=== PATIENT | female | born 1960 | race Caucasian/White ===

== ENCOUNTER 2020-12-02 19:11 | Observation (INO) ==
[2020-12-02] MEDS ORDERED: SODIUM CHLORIDE 0.9% 1000ML 1,000 ML IV STA (19:31)
[2020-12-02] MEDS ORDERED: ONDANSETRON INJ 2 MG/ML 2 ML VIAL IV STA (19:31)
--- NOTE | 2020-12-02 19:40 | Emergency Department Note ---
Impression & Plan Lower abdominal pain, Acute perforated appendicitis, Tachycardia ED Provider Note NAME: MARCELA SKY AGE: 60 SEX: F : 1960 ARRIVES VIA: Walk-In INFORMANT: [Patient] ED PROVIDER(S): [Ulices Palma MD] CHIEF COMPLAINT: Abdominal pain HISTORY OF PRESENT ILLNESS: The patient is a 60-year-old female presents to the ER with about 1 day of abdominal pain. The pain started last evening and was mainly epigastric. The pain now seems to be along the lower abdomen, more so to the right with some radiation to the right upper quadrant. Movement, walking, taking a deep breath makes the pain worse. The pain is a 10/10. There has been no cough or nasal congestion. She is not short of breath. There is no chest pain. She has not had any urinary or bowel complaints. The patient did have a gastric bypass, she is really worried about her appendix, that is why she is here. REVIEW OF SYSTEMS: See HPI for pertinent positives and negatives. A total of ten systems were reviewed and were otherwise negative. PMHx/PSHx: See Below SOCIAL HISTORY: See Below. PHYSICAL EXAM: GENERAL: Patient is in no acute distress. HEENT: No acute trauma, normocephalic atraumatic, mucous membranes moist, no nasal congestion, no scleral icterus. NECK: No stridor, no adenopathy, no meningismus, trachea is midline. LUNGS: Clear to auscultation bilaterally, no wheeze, no rhonchi, breath sounds equal. HEART: Tachycardic with a regular rhythm, no murmurs. ABDOMEN: Soft, moderately tender to the lower abdomen bilaterally especially on the right, bowel sounds positive, no peritonitis. EXTREMITIES: No cyanosis or edema, full range of motion of all the joints witho ut pain or difficulty, no signs for acute trauma. NEUROLOGIC: Oriented x 3, no acute motor or sensory deficits, no focal weakness. SKIN: No rash, no jaundice, no diaphoresis. DIFFERENTIAL DIAGNOSIS: Appendicitis, ovarian cyst, infections, diverticulitis, UTI, obstruction, mes enteric ischemia, aortic pathology, inflammatory bowel disease, renal colic, PUD, pancreatitis, biliary pathology, hernia, volvulus, constipation, as well as other pathologies. EMERGENCY DEPARTMENT COURSE/PROCEDURES: ECG: Indication was tachycardia. The ECG shows a sinus tachycardia with a rate of 142. There is LVH present. There is no ST elevation, no PVCs. The QTc is 458. No old ECGs available for comparison. Continuous Cardiac Monitoring: An order was placed for continuous cardiac monitoring. The monitor shows a rate of 147 with sinus tachycardia. MEDICAL DECISION MAKING: There is no leukocytosis or concerning anemia. There is a normal platelet count. No significant electrolyte abnormality or kidney failure. No liver enzyme elevation. No pancreatitis. ECG shows a sinus tachycardia, no acute isc hemia. Cardiac enzyme testing x1 is not consistent with acute cardiac injury. Urinalysis does not show infection, some contamination was seen. Covid testing is pending. Chest film does not show free air or pneumonia. Abdominal and pelvis CT shows a perforated appendicitis with loculated gas. There was no abscess. The patient was given IV saline, 2 L. She was given IV Zosyn as empiric antib iotic coverage. Patient was given IV morphine for pain, IV Zofran for nausea. I talked the patient about her findings. I spoke with case repairer. I did speak with the on-call surgeon. Certainly, the appendicitis findings explain her presentation. Past Med/Surg History Surgical History History of gastric bypass Social History Smoking Status: Former smoker Feels Safe at Home: Yes Allergies Allergies Allergy/AdvReac Type Severity Reaction Status Date / Time No Known Allergies Allergy Unverified 12/02/20 20:15 Home Meds Home Medications Medication Instructions Recorded Confirmed jlsokrb-njzrhirxr-bdnk 1 tab PO QAM 12/02/20 12/02/20 ibuprofen 400 mg PO Q6H PRN 12/02/20 12/02/20 potassium 99 mg PO QAM 12/02/20 12/02/20 vitamin B complex 1 tab PO QAM 12/02/20 12/02/20 Results & Data (ED) Vital Signs Vital Signs - 24 hr 12/02/20 19:22 12/02/20 19:38 12/02/20 20:04 Temperature 36.3 C L Temperature Source Skin Pulse Rate 147 H 147 H 154 H Pulse Rate from SpO2 Sensor 153 H Pulse Rhythm Regular Respiratory Rate 18 18 17 Respiratory Effort / Characteristics Non-Labored Spontaneous Respiratory Depth Normal Respiratory Pattern Regular Blood Pressure 148/77 H 123/75 Blood Pressure Mean 100 91 Blood Pressure Position Sitting Pulse Oximetry 97 97 96 Oxygen Delivery Method Room Air Room Air Sepsis Recent Fever Within 48 Hours No Sepsis New/Unexplained Change in Mental Status N/A Sepsis Action Taken by Nursing No Action Required 12/02/20 20:30 12/02/20 21:00 12/02/20 21:30 Temperature Temperature Source Pulse Rate 130 H 129 H 130 H Pulse Rate from SpO2 Sensor 130 H 129 H 130 H Pulse Rhythm Respiratory Rate 19 19 14 Respiratory Effort / Characteristics Respiratory Depth Respiratory Pattern Blood Pressure 149/85 H 155/85 H 161/88 H Blood Pressure Mean 106 108 112 Blood Pressure Position Pulse Oximetry 96 97 97 Oxygen Delivery Method Sepsis Recent Fever Within 48 Hours Sepsis New/Unexplained Change in Mental Status Sepsis Action Taken by Nursing 12/02/20 22:00 Temperature Temperature Source Pulse Rate 130 H Pulse Rate from SpO2 Sensor 131 H Pulse Rhythm Respiratory Rate 18 Respiratory Effort / Characteristics Respiratory Depth Respiratory Pattern Blood Pressure 132/99 Blood Pressure Mean 110 Blood Pressure Position Pulse Oximetry 96 Oxygen Delivery Method Sepsis Recent Fever Within 48 Hours Sepsis New/Unexplained Change in Mental Status Sepsis Action Taken by Detention Medications Current Medication List: was personally reviewed by me Laboratory Data Attestation: I reviewed the patient's lab results. Result diagrams: 12/02/20 19:50 12/02/20 19:50 Lab Results 12/02/20 12/02/20 12/02/20 Range/Units 19:50 19:50 19:51 WBC 7.22 (4.8-10.8) K/uL RBC 4.82 (4.2-5.4) M/uL Hgb 14.8 (12.0-16.0) g/dL Hct 42.7 (37-47) % MCV 88.6 (80-100) fL MCH 30.7 (25-34) pg MCHC 34.7 (32-36) g/dL RDW Std Deviation 41.3 (36.4-46.3) fL RDW Coeff of Diana 12.7 (11.5-14.5) % Plt Count 207 (130-400) K/uL MPV 10.1 (7.4-10.4) fL Immature Gran % (Auto) 0.1 % Neut % (Auto) 90.5 % Lymph % (Auto) 6.2 % [place] % (Auto) 3.0 % Eos % (Auto) 0.1 % Baso % (Auto) 0.1 % Neut # (Auto) 6.52 H (1.4-6.5) K/uL Lymph # (Auto) 0.45 L (1.2-3.4) K/uL [place] # (Auto) 0.22 (0.11-0.59) K/uL Eos # (Auto) 0.01 (0-0.5) K/uL Baso # (Auto) 0.01 (0-0.2) K/uL Immature Gran # (Auto) 0.01 (0.00-0.02) K/uL Sodium 135 L (136-145) mmol/L Potassium 3.7 (3.5-5.1) mmol/L Chloride 102 (98-107) mmol/L Carbon Dioxide 22 (21-32) mmol/L Anion Gap 10.0 (3-11) BUN 12 (7-18) mg/dl Creatinine 1.04 (0.6-1.2) mg/dl Est Cr Clr Drug Dosing 66.1 ml/min Est GFR ( Amer) 67.6 Est GFR (Non-Af Amer) 58.4 BUN/Creatinine Ratio 11.7 (10-20) Glucose 149 H (70-99) mg/dl Calcium 9.8 (8.5-10.1) mg/dl Total Bilirubin 0.7 (0.2-1) mg/dl AST 16 (15-37) U/L ALT 34 (12-78) U/L Alkaline Phosphatase 91 (45-117) U/L Troponin I < 0.015 (0-0.045) ng/ml Total Protein 7.6 (6.4-8.2) gm/dl Albumin 4.0 (3.4-5.0) gm/dl Globulin 3.6 (2.5-4.0) gm/dl Albumin/Globulin Ratio 1.1 (0.9-2) Lipase 97 (73-393) U/L Urine Color Dark Yellow Urine Appearance Clear (Clear) Urine pH 5.5 (4.5-7.5) Ur Specific [place] 1.028 (1.000-1.030) Urine Protein Trace H (Negative) Urine Glucose (UA) Negative (Negative) Urine Ketones Trace H (Negative) Urine Blood Negative (Negative) Urine Nitrite Negative (Negative) Urine Bilirubin 1+ H (Negative) Urine Urobilinogen Negative (Negative) Ur Leukocyte Esterase Trace H (Negative) Urine WBC (Auto) 5-10 H (0-5) /hpf Urine RBC (Auto) 5-10 H (0-4) /hpf U Hyaline Cast (Auto) 5-10 H (0-5) /lpf U Epithel Cells (Auto) >30 H (0-5) /lpf Urine Bacteria (Auto) Negative (Negative) COVID-19 Eval Order 12/02/20 Range/Units 22:15 WBC (4.8-10.8) K/uL RBC (4.2-5.4) M/uL Hgb (12.0-16.0) g/dL Hct (37-47) % MCV (80-100) fL MCH (25-34) pg MCHC (32-36) g/dL RDW Std Deviation (36.4-46.3) fL RDW Coeff of Diana (11.5-14.5) % Plt Count (130-400) K/uL MPV (7.4-10.4) fL Immature Gran % (Auto) % Neut % (Auto) % Lymph % (Auto) % [place] % (Auto) % Eos % (Auto) % Baso % (Auto) % Neut # (Auto) (1.4-6.5) K/uL Lymph # (Auto) (1.2-3.4) K/uL [place] # (Auto) (0.11-0.59) K/uL Eos # (Auto) (0-0.5) K/uL Baso # (Auto) (0-0.2) K/uL Immature Gran # (Auto) (0.00-0.02) K/uL Sodium (136-145) mmol/L Potassium (3.5-5.1) mmol/L Chloride (98-107) mmol/L Carbon Dioxide (21-32) mmol/L Anion Gap (3-11) BUN (7-18) mg/dl Creatinine (0.6-1.2) mg/dl Est Cr Clr Drug Dosing ml/min Est GFR ( Amer) Est GFR (Non-Af Amer) BUN/Creatinine Ratio (10-20) Glucose (70-99) mg/dl Calcium (8.5-10.1) mg/dl Total Bilirubin (0.2-1) mg/dl AST (15-37) U/L ALT (12-78) U/L Alkaline Phosphatase (45-117) U/L Troponin I (0-0.045) ng/ml Total Protein (6.4-8.2) gm/dl Albumin (3.4-5.0) gm/dl Globulin (2.5-4.0) gm/dl Albumin/Globulin Ratio (0.9-2) Lipase (73-393) U/L Urine Color Urine Appearance (Clear) Urine pH (4.5-7.5) Ur Specific [place] (1.000-1.030) Urine Protein (Negative) Urine Glucose (UA) (Negative) Urine Ketones (Negative) Urine Blood (Negative) Urine Nitrite (Negative) Urine Bilirubin (Negative) Urine Urobilinogen (Negative) Ur Leukocyte Esterase (Negative) Urine WBC (Auto) (0-5) /hpf Urine RBC (Auto) (0-4) /hpf U Hyaline Cast (Auto) (0-5) /lpf U Epithel Cells (Auto) (0-5) /lpf Urine Bacteria (Auto) (Negative) COVID-19 Eval Order CovFluRsv at [facility] Administered Medications Morphine Sulfate (Morphine Sulfate 4 Mg/Ml 1 Ml Carp\Vial) 4 mg IV Q15M PRN PRN Reason: Pain Stop: 12/16/20 19:30 Last Admin: 12/02/20 22:09 Dose: 4 mg Documented by: [id number] Admin: 12/02/20 19:59 Dose: 4 mg Documented by: [id number] Discontinued Medications Sodium Chloride (Nss 1000ml) 1,000 mls @ 999 mls/hr IV .Q1H1M STA Stop: 12/02/20 20:31 Last Infusion: 12/02/20 21:06 Dose: 0 mls/hr Documented by: [id number] Admin: 12/02/20 19:59 Dose: 999 mls/hr Documented by: [id number] Sodium Chloride (Nss 1000ml) 1,000 mls @ 999 mls/hr IV .Q1H1M ONE Stop: 12/02/20 22:38 Last Admin: 12/02/20 21:42 Dose: 999 mls/hr Documented by: [id number] Piperacillin Sod/Tazobactam Sod (Zosyn) 4.5 gm in 120 mls @ 240 mls/hr IV NOW ONE Stop: 12/02/20 22:26 Last Admin: 12/02/20 22:11 Dose: 240 mls/hr Documented by: [id number] Ioversol (Optiray 300 100ml) 84 ml IV ONCE ONE Stop: 12/02/20 21:13 Last Admin: 12/02/20 21:13 Dose: 84 ml Documented by: [id number] Ondansetron HCl (Ondansetron Inj 2 Mg/Ml 2 Ml Vial) 4 mg IV NOW STA Stop: 12/02/20 19:32 Last Admin: 12/02/20 19:59 Dose: 4 mg Documented by: [id number] Imaging Data Radiologist's Impression: Chest X-Ray 12/02/20 19:36 XR chest 1V portable CLINICAL HISTORY: Abdominal pain. COMPARISON STUDY: No previous studies for comparison. FINDINGS: Lung volumes are at the lower limits of normal. Lungs are clear. There is no pneumothorax or pleural effusion. Cardiac size is normal. Mediastinal contours are normal. There is no evidence for pulmonary edema. IMPRESSION: No acute cardiopulmonary findings. ACT 112: Negative or not required by law. Electronically signed by: Camden Galindo M.D. 12/02/2020 8:25 PM Abdominal and pelvis CT with IV contrast: There is evidence for a dilated appendix at 1.1 cm. There is surrounding fat stranding consistent with acute appendicitis. There is perforation with a small amount of localized free air within the right lower quadrant mesentery adjacent to the appendix. No abscess. Discharge Plan Visit Data Chief Complaint: Abdominal Pain Stated Complaint: ABD PAIN ED Provider: Ulices Palma Discharge Problem: Lower abdominal pain, Acute perforated appendicitis, Tachycardia Patient Disposition: Admitted As Inpatient Condition: Fair Forms Stand Alone Forms: My OpenText Prescriptions Prescriptions: No Action potassium 99 mg Tablet 99 mg PO QAM RF: 0 [id number]-nwojyopac-hdfv Tablet 1 tab PO QAM RF: 0 ibuprofen 200 mg Tablet 400 mg PO Q6H PRN (Reason: fever/pain) RF: 0 vitamin B complex Tablet 1 tab PO QAM RF: 0 Referrals Referrals: PCP,NO [Primary Care Provider] -
[2020-12-02] MEDS: MoRPHine SULFATE 4 MG/ML 1 ML CARP\\VIAL IV PRN ×2 (19:59→22:09)
[2020-12-02 20:01] LABS: Basophils # (auto) 0.01 K/uL (0-0.2); Basophils % (auto) 0.1 %; Eosinophils # (auto) 0.01 K/uL (0-0.5); Eosinophils % (auto) 0.1 %; Hematocrit (blood only) 42.7 % (37-47); Hemoglobin 14.8 g/dL (12.0-16.0); Immature Granulocytes # (auto) 0.01 K/uL (0.00-0.02); Immature Granulocytes % (auto) 0.1 %; Lymphocytes # (auto) 0.45 K/uL (1.2-3.4); Lymphocytes % (auto) 6.2 %; Mean Corpuscular Hemoglobin 30.7 pg (25-34); Mean Corpuscular Hgb Conc 34.7 g/dL (32-36); Mean Corpuscular Volume 88.6 fL (80-100); Mean Platelet Volume 10.1 fL (7.4-10.4); Monocytes # (auto) 0.22 K/uL (0.11-0.59); Neutrophils # (auto) 6.52 K/uL (1.4-6.5); Neutrophils % (auto) 90.5 %; Platelet Count 207 K/uL (130-400); RDW Coefficient of Variation 12.7 % (11.5-14.5); RDW Standard Deviation 41.3 fL (36.4-46.3); Red Blood Count 4.82 M/uL (4.2-5.4); White Blood Count 7.22 K/uL (4.8-10.8)
[2020-12-02 20:03] LABS: Appearance Urine Clear (Clear); Bacteria Urine Automated Negative (Negative); Bilirubin Urine 1+ (Negative); Blood Urine Negative (Negative); Color Urine Dark Yellow; Epithelial Cell Urine Auto >30 /lpf (0-5); Glucose Urine UA Negative (Negative); Ketones Urine Trace (Negative); Leukocyte Esterase Urine Trace (Negative); Nitrite Urine Negative (Negative); Protein Urine Trace (Negative); Specific Gravity Urine 1.028 (1.000-1.030); Urobilinogen Urine Negative (Negative); pH Urine 5.5 (4.5-7.5)
--- NOTE | 2020-12-02 20:27 | XRay Report ---
XR chest 1V portable CLINICAL HISTORY: Abdominal pain. COMPARISON STUDY: No previous studies for comparison. FINDINGS: Lung volumes are at the lower limits of normal. Lungs are clear. There is no pneumothorax o r pleural effusion. Cardiac size is normal. Mediastinal contours are normal. There is no evidence for pulmonary edema. IMPRESSION: No acute cardiopulmonary findings. ACT 112: Negative or not required by law. Electronically signed by: Camden Galindo M.D. 12/02/2020 8:25 PM
[2020-12-02 20:36] LABS: Alanine Aminotransferase 34 U/L (12-78); Aspartate Aminotransferase 16 U/L (15-37); BUN Creatinine Ratio 11.7 (10-20); Blood Urea Nitrogen 12 mg/dl (7-18); Calcium 9.8 mg/dl (8.5-10.1); Carbon Dioxide 22 mmol/L (21-32); Chloride 102 mmol/L (98-107); Creatinine Clr Calc Pharmacy 66.1 ml/min; Est GFR (African American) 67.6; Est GFR (Non-African American) 58.4; Glucose 149 mg/dl (70-99); Lipase 97 U/L (73-393); Potassium 3.7 mmol/L (3.5-5.1); Sodium 135 mmol/L (136-145)
[2020-12-02 20:41] LABS: Albumin Globulin Ratio 1.1 (0.9-2); Alkaline Phosphatase 91 U/L (45-117); Bilirubin,Total 0.7 mg/dl (0.2-1); Globulin 3.6 gm/dl (2.5-4.0); Total Protein 7.6 gm/dl (6.4-8.2); Troponin I < 0.015 ng/ml (0-0.045)
[2020-12-02] MEDS ORDERED: OPTIRAY 300 100mL IV ONE (21:12)
[2020-12-02] MEDS ORDERED: SODIUM CHLORIDE 0.9% 1000ML 1,000 ML IV ONE (21:38)
[2020-12-02] MEDS ORDERED: PIPERACILL/TAZOBAC CONSULT ACTIVE PRN (21:57)
[2020-12-02] MEDS ORDERED: PIPERACILLIN/TAZOBACTAM 4.5 GM/120 ML BAG IV ONE (21:57)
[2020-12-02 23:06] LABS: Influenza A virus by PCR Negative (Neg); Influenza B virus by PCR Negative (Neg); RSV by PCR Negative (Neg); SARS CoV2 RNA(COVID-19) InHosp NEGATIVE (Negative)
--- NOTE | 2020-12-02 23:47 | History & Physical Report ---
Date of Service December 02, 2020 Assessment & Plan (1) Acute perforated appendicitis: This patient has acute appendicitis with a probable small localized perforation. I recommended laparoscopic appendectomy. She understands that there is an increased likelihood that we may need to convert to an open procedure. I explained the possible complications and answered her questions and she has signed a consent form. History of Present Illness Chief Complaint: Right lower quadrant pain with chills Primary Care Provider: NO PCP This is a 60-year-old female who presented to the emergency room with a complaint of pain in the right lower quadrant. She awoke with it at 1:00 this morning. She went to bed last night she had no pain. The pain was initially described as a burning sensation but then as the morning and then day progressed it became more sharp and migrated to the right lower quadrant. She took some ibuprofen with milk and the pain abated however when she got off the couch it became sharp again. She has never had pain like this before. Does not radiate through to her back. There is no associated nausea or vomiting. She had the chills but she does not think she had fever. She had no change in her bowel habits. She denies melena and hematochezia. There is no associated urinary frequency. She has no dysuria or hematuria. Upon arrival in the emergency room she was tachycardic with a heart rate of 140. EKG showed sinus tachycardia. She was given a liter of IV fluid and her heart rate decreased into the 120s. Allergies Allergy/AdvReac Type Severity Reaction Status Date / Time No Known Allergies Allergy Unverified 12/02/20 20:15 Home Medications Medication Instructions Recorded Confirmed Type [id number]-bpuixnqlw-dptl 1 tab PO QAM 12/02/20 12/02/20 History ibuprofen 400 mg PO Q6H PRN 12/02/20 12/02/20 History potassium 99 mg PO QAM 12/02/20 12/02/20 History vitamin B complex 1 tab PO QAM 12/02/20 12/02/20 History Past Med/Surg History Surgical History (Updated 12/02/20 @ 23:44 by Silas Dior MD) H/O forearm fracture S/P repair History of gastric bypass S/P tonsillectomy Social History Smoking Status: Former smoker Feels Safe at Home: Yes Review of Systems Review of Systems: All systems reviewed & are unremarkable except as noted in HPI & below Physical Exam Constitutional: + obese; no acute distress Neck: trachea midline Respiratory: normal respiratory effort, lungs clear to auscultation Cardiovascular: Rate/Rhythm: regular rate and regular rhythm Gastrointestinal (Abdomen): Inspection/Auscultation: + hypoactive bowel sounds; abdomen not distended Percussion/Palpation: + abdomen tender (Right lower quadrant) and abdomen soft; no abdominal mass Skin: no rashes, warm and dry Results & Data Results & Data ([facility]) Vital Signs (Past 12 Hours) Vital Signs Temp Pulse Pulse Resp BP BP Pulse Ox 12/02/20 23:29 13 L 20 126/79 96 12/02/20 22:00 130 H 18 132/99 96 12/02/20 21:30 130 H 14 161/88 H 97 12/02/20 21:00 129 H 19 155/85 H 97 12/02/20 20:30 130 H 19 149/85 H 96 12/02/20 20:04 154 H 17 123/75 96 12/02/20 19:38 147 H 18 97 12/02/20 19:22 36.3 C L 147 H 18 148/77 H 97 Laboratory Results 12/02/20 12/02/20 12/02/20 Range/Units 22:15 22:15 19:51 WBC (4.8-10.8) K/uL RBC (4.2-5.4) M/uL Hgb (12.0-16.0) g/dL Hct (37-47) % MCV (80-100) fL MCH (25-34) pg MCHC (32-36) g/dL RDW Std Deviation (36.4-46.3) fL RDW Coeff of Diana (11.5-14.5) % Plt Count (130-400) K/uL MPV (7.4-10.4) fL Immature Gran % (Auto) % Neut % (Auto) % Lymph % (Auto) % [place] % (Auto) % Eos % (Auto) % Baso % (Auto) % Neut # (Auto) (1.4-6.5) K/uL Lymph # (Auto) (1.2-3.4) K/uL [place] # (Auto) (0.11-0.59) K/uL Eos # (Auto) (0-0.5) K/uL Baso # (Auto) (0-0.2) K/uL Immature Gran # (Auto) (0.00-0.02) K/uL Sodium (136-145) mmol/L Potassium (3.5-5.1) mmol/L Chloride (98-107) mmol/L Carbon Dioxide (21-32) mmol/L Anion Gap (3-11) BUN (7-18) mg/dl Creatinine (0.6-1.2) mg/dl Est Cr Clr Drug Dosing ml/min Est GFR ( Amer) Est GFR (Non-Af Amer) BUN/Creatinine Ratio (10-20) Glucose (70-99) mg/dl Calcium (8.5-10.1) mg/dl Total Bilirubin (0.2-1) mg/dl AST (15-37) U/L ALT (12-78) U/L Alkaline Phosphatase (45-117) U/L Troponin I (0-0.045) ng/ml Total Protein (6.4-8.2) gm/dl Albumin (3.4-5.0) gm/dl Globulin (2.5-4.0) gm/dl Albumin/Globulin Ratio (0.9-2) Lipase (73-393) U/L Urine Color Dark Yellow Urine Appearance Clear (Clear) Urine pH 5.5 (4.5-7.5) Ur Specific [place] 1.028 (1.000-1.030) Urine Protein Trace H (Negative) Urine Glucose (UA) Negative (Negative) Urine Ketones Trace H (Negative) Urine Blood Negative (Negative) Urine Nitrite Negative (Negative) Urine Bilirubin 1+ H (Negative) Urine Urobilinogen Negative (Negative) Ur Leukocyte Esterase Trace H (Negative) Urine WBC (Auto) 5-10 H (0-5) /hpf Urine RBC (Auto) 5-10 H (0-4) /hpf U Hyaline Cast (Auto) 5-10 H (0-5) /lpf U Epithel Cells (Auto) >30 H (0-5) /lpf Urine Bacteria (Auto) Negative (Negative) COVID-19 Eval Order CovFluRsv at [facility] SARS-CoV-2 (PCR) NEGATIVE (Negative) Influenza Type A (PCR) Negative (Neg) Influenza Type B (PCR) Negative (Neg) RSV (RT-PCR) Negative (Neg) 12/02/20 12/02/20 Range/Units 19:50 19:50 WBC 7.22 (4.8-10.8) K/uL RBC 4.82 (4.2-5.4) M/uL Hgb 14.8 (12.0-16.0) g/dL Hct 42.7 (37-47) % MCV 88.6 (80-100) fL MCH 30.7 (25-34) pg MCHC 34.7 (32-36) g/dL RDW Std Deviation 41.3 (36.4-46.3) fL RDW Coeff of [place] 12.7 (11.5-14.5) % Plt Count 207 (130-400) K/uL MPV 10.1 (7.4-10.4) fL Immature Gran % (Auto) 0.1 % Neut % (Auto) 90.5 % Lymph % (Auto) 6.2 % [place] % (Auto) 3.0 % Eos % (Auto) 0.1 % Baso % (Auto) 0.1 % Neut # (Auto) 6.52 H (1.4-6.5) K/uL Lymph # (Auto) 0.45 L (1.2-3.4) K/uL [place] # (Auto) 0.22 (0.11-0.59) K/uL Eos # (Auto) 0.01 (0-0.5) K/uL Baso # (Auto) 0.01 (0-0.2) K/uL Immature Gran # (Auto) 0.01 (0.00-0.02) K/uL Sodium 135 L (136-145) mmol/L Potassium 3.7 (3.5-5.1) mmol/L Chloride 102 (98-107) mmol/L Carbon Dioxide 22 (21-32) mmol/L Anion Gap 10.0 (3-11) BUN 12 (7-18) mg/dl Creatinine 1.04 (0.6-1.2) mg/dl Est Cr Clr Drug Dosing 66.1 ml/min Est GFR ( Amer) 67.6 Est GFR (Non-Af Amer) 58.4 BUN/Creatinine Ratio 11.7 (10-20) Glucose 149 H (70-99) mg/dl Calcium 9.8 (8.5-10.1) mg/dl Total Bilirubin 0.7 (0.2-1) mg/dl AST 16 (15-37) U/L ALT 34 (12-78) U/L Alkaline Phosphatase 91 (45-117) U/L Troponin I < 0.015 (0-0.045) ng/ml Total Protein 7.6 (6.4-8.2) gm/dl Albumin 4.0 (3.4-5.0) gm/dl Globulin 3.6 (2.5-4.0) gm/dl Albumin/Globulin Ratio 1.1 (0.9-2) Lipase 97 (73-393) U/L Urine Color Urine Appearance (Clear) Urine pH (4.5-7.5) Ur Specific [place] (1.000-1.030) Urine Protein (Negative) Urine Glucose (UA) (Negative) Urine Ketones (Negative) Urine Blood (Negative) Urine Nitrite (Negative) Urine Bilirubin (Negative) Urine Urobilinogen (Negative) Ur Leukocyte Esterase (Negative) Urine WBC (Auto) (0-5) /hpf Urine RBC (Auto) (0-4) /hpf U Hyaline Cast (Auto) (0-5) /lpf U Epithel Cells (Auto) (0-5) /lpf Urine Bacteria (Auto) (Negative) COVID-19 Eval Order SARS-CoV-2 (PCR) (Negative) Influenza Type A (PCR) (Neg) Influenza Type B (PCR) (Neg) RSV (RT-PCR) (Neg) Diagnostic Findings CT scan of the abdomen and pelvis shows a 1.1 cm appendix with surrounding inflammatory change and localized small area of air in the mesentery consistent with possible localized perforation but there was no abscess.
[2020-12-02] MEDS ORDERED: fentaNYL citrate 100 MCG/2 ML VIAL ONE (23:54)
[2020-12-03] MEDS ORDERED: ONDANSETRON INJ 2 MG/ML 2 ML VIAL ONE
[2020-12-03] MEDS ORDERED: PROPOFOL IV EMULSION 10 MG/ML 20 ML VIAL IV ONE
[2020-12-03] MEDS ORDERED: DEXAMETHASONE SOD INJ 4 MG/ML VIAL ONE (00:01)
[2020-12-03] MEDS ORDERED: LIDOCAINE HCL 2% 2 ML VIAL/AMP(20MG/ML) INFIL ONE (00:01)
[2020-12-03] MEDS ORDERED: SUCCINYLCHOLINE CHLORIDE 20 MG/ML 10 ML VIAL IV ONE (00:01)
[2020-12-03] MEDS ORDERED: HEPARIN (PORCINE) 1000 UNIT/ML 10 ML (CATH LAB USE ONLY) ONE (00:05)
[2020-12-03] MEDS ORDERED: BUPIVACAINE 0.5 % 5 MG/1 ML MPF 30ML VIAL ONE (00:05)
--- NOTE | 2020-12-03 00:09 | Anesthesiology Consultation ---
Date of Service December 03, 2020 Covid 19 negative on 12/02/20. Assessment & Plan (1) Encounter for pre-operative examination: Chart Review Chart Review: Acceptable Risk for Surgery and Patient NOT seen in Pre Admission Testing Consults Requested none History Surgery Operation Date: 12/03/20 00:00 Proposed Procedures p Laparoscopic Appendectomy - Silas Dior MD Height/Weight Height: 5 ft 4 in Weight: 100 kg Allergies Allergy/AdvReac Type Severity Reaction Status Date / Time No Known Allergies Allergy Unverified 12/02/20 20:15 Medications Home Medications Medication Instructions Recorded Confirmed Last Taken ubjnhek-tqdcavzvd-joeq 1 tab PO QAM 12/02/20 12/02/20 12/02/20 ibuprofen 400 mg PO Q6H PRN 12/02/20 12/02/20 12/02/20 400 mg potassium 99 mg PO QAM 12/02/20 12/02/20 12/02/20 vitamin B complex 1 tab PO QAM 12/02/20 12/02/20 12/02/20 Active Medications Generic Name Dose Route Start Last Admin Trade Name Osmarq PRN Reason Stop Dose Admin Morphine Sulfate 4 mg 12/02/20 19:31 12/02/20 22:09 Morphine Sulfate 4 Mg/Ml 1 Ml Carp\Vial IV 12/16/20 19:30 4 mg Q15M PRN Administration Pain NPO Date Last Intake of Fluids: 12/02/20 Time Last Intake of Fluids: 16:00 Past Medical History Medical History Obesity Past Surgical History Surgical History H/O forearm fracture S/P repair History of gastric bypass S/P tonsillectomy Social History Smoking Status: Former smoker Physical Exam Vital Signs Last Vital Signs Temp 36.3 C L 12/02/20 19:22 Pulse 13 L 12/02/20 23:29 Resp 20 12/02/20 23:29 BP 126/79 12/02/20 23:29 Pulse Ox 96 12/02/20 23:29 Testing Laboratory Results 12/02/20 19:50 12/02/20 19:50 Urine Color Dark Yellow 12/02/20 19:51 Urine Appearance Clear (Clear) 12/02/20 19:51 Urine pH 5.5 (4.5-7.5) 12/02/20 19:51 Ur Specific [place] 1.028 (1.000-1.030) 12/02/20 19:51 Urine Protein Trace (Negative) H 12/02/20 19:51 Urine Glucose (UA) Negative (Negative) 12/02/20 19:51 Urine Ketones Trace (Negative) H 12/02/20 19:51 Urine Nitrite Negative (Negative) 12/02/20 19:51 Ur Leukocyte Esterase Trace (Negative) H 12/02/20 19:51 Urine WBC (Auto) 5-10 /hpf (0-5) H 12/02/20 19:51 Urine RBC (Auto) 5-10 /hpf (0-4) H 12/02/20 19:51 U Hyaline Cast (Auto) 5-10 /lpf (0-5) H 12/02/20 19:51 U Epithel Cells (Auto) >30 /lpf (0-5) H 12/02/20 19:51 Urine Bacteria (Auto) Negative (Negative) 12/02/20 19:51 Electrocardiogram Date: 12/02/20 Findings: + ST @ (142) LVH with repolarization abnormality Chest X-Ray Date: 12/02/20 XR chest 1V portable CLINICAL HISTORY: Abdominal pain. COMPARISON STUDY: No previous studies for comparison. FINDINGS: Lung volumes are at the lower limits of normal. Lungs are clear. There is no pneumothorax or pleural effusion. Cardiac size is normal. Mediastinal contours are normal. There is no evidence for pulmonary edema. IMPRESSION: No acute cardiopulmonary findings. ACT 112: Negative or not required by law. Electronically signed by: Camden Galindo M.D. 12/02/2020 8:25 PM Dictated: 12/02/202024
[2020-12-03] MEDS ORDERED: ATROPINE SULFATE 0.1 MG/ML 10ML SYR IV PRN (00:11)
[2020-12-03] MEDS ORDERED: HYDROmorphone INJ 1 MG/ML SYRINGE IV PRN (00:11)
[2020-12-03] MEDS ORDERED: MEPERIDINE HCL 25 MG/ML CARP/VIAL IV PRN (00:11)
[2020-12-03] MEDS ORDERED: LABETALOL HCL IV 5 MG/ML 20ML IV PRN (00:11)
[2020-12-03] MEDS ORDERED: ePHEDrine sulfate 50 MG/ML AMP IV PRN (00:11)
[2020-12-03] MEDS ORDERED: ONDANSETRON INJ 2 MG/ML 2 ML VIAL IV PRN ×2 (00:11→03:27)
[2020-12-03] MEDS ORDERED: PHENYLEPHRINE 100MCG/ML 5ML SYR IV PRN (00:11)
[2020-12-03] MEDS ORDERED: fentaNYL citrate 100 MCG/2 ML VIAL IV PRN (00:11)
[2020-12-03] MEDS ORDERED: ESMOLOL HCL INJ 10 MG/ML 10ML VIAL IV ONE (01:07)
[2020-12-03] MEDS ORDERED: NEOSTIGMINE METHYLSULFATE 5 MG/5 ML SYR ONE (01:26)
[2020-12-03] MEDS ORDERED: GLYCOPYRROLATE 0.2 MG/ML VIAL ONE (01:26)
[2020-12-03] MEDS ORDERED: fentaNYL citrate 100 MCG/2 ML VIAL ONE ×2 (02:21→03:15)
[2020-12-03] MEDS ORDERED: ROCURONIUM BROMIDE 10 MG/ML 5 ML VIAL IV ONE ×2 (02:59)
[2020-12-03] MEDS ORDERED: MoRPHine SULFATE 4 MG/ML 1 ML CARP\\VIAL IV PRN (03:27)
--- NOTE | 2020-12-03 03:27 | Post Operative Brief Note ---
Immediate Post Op Note v1 Date of Surgery December 03, 2020 Pre & Post Diagnosis Operation Date: 12/03/20 00:00 Pre-Op Diagnosis: Acute perforated appendicitis I identified the patient and participated in the time-out.: Yes Procedure Operation Date: 12/03/20 00:00 <No data on this case meets the specified criteria> Surgeon Silas Dior MD Drain Tile Machine Operator None Estimated Blood Loss 5 Findings Consistent with Post-Op Diagnosis Drains [place] Drain (10mm Flat)
[2020-12-03] MEDS ORDERED: PIPERACILL/TAZOBAC CONSULT ACTIVE PRN (03:33)
--- NOTE | 2020-12-03 03:41 | Anesthesiology Progress Note ---
Date of Service December 03, 2020 Anesthesia Post Procedure Vital Signs Vital Signs: Temp Pulse Pulse Resp BP BP Pulse Ox 12/03/20 00:21 135 H 20 122/76 95 12/02/20 23:29 133 H 20 126/79 96 12/02/20 22:00 130 H 18 132/99 96 12/02/20 21:30 130 H 14 161/88 H 97 12/02/20 21:00 129 H 19 155/85 H 97 12/02/20 20:30 130 H 19 149/85 H 96 12/02/20 20:04 154 H 17 123/75 96 12/02/20 19:38 147 H 18 97 12/02/20 19:22 36.3 C L 147 H 18 148/77 H 97 Pain Intensity Bilateral Abdomen: Pain Intensity: 3 Transfer of Care Handoff Completed per policy Notes Mental Status: alert / awake / arousable Patient Amnestic to Procedure: Yes Nausea / Vomiting: adequately controlled Pain: adequately controlled Airway Patency, RR, SpO2: stable & adequate BP & HR: stable & adequate and see Notes below Hydration State: stable & adequate Anesthetic Complications: no major complications apparent and Pt Satisfied with anesthetic care Notes: The patient is awake and comfortable in recovery. Her HR is in the 110s which is improved from her preoperative HR in the 130s. Her other vital signs are stable.
--- NOTE | 2020-12-03 05:15 | Operative Report (OR) ---
DATE OF OPERATION: 12/03/2020 PREOPERATIVE DIAGNOSIS: Acute perforated appendicitis. POSTOPERATIVE DIAGNOSIS: Acute perforated appendicitis. PROCEDURE: Laparoscopic appendectomy. SURGEON: Silas Dior MD FINDINGS: Upon entering the abdomen, there was white purulent appearing fluid seen in the right lower quadrant as well as in the pelvis. The appendix was mildly adherent to the undersurface of the cecum as well as the mesentery of the cecum, but it was easily . The mid portion of the appendix was gangrenous. There was a clear area of perforation with leaking enteric material. The base of the appendix and the cecum at the base of the appendix had some reactive change, but were otherwise normal. The distal third of the appendix was mildly dilated; however, there was no appearing gangrenous portion there. The cecum appeared normal. There were some reactive changes of the small bowel in that area, but there were no other abnormalities of the small bowel. The uterus was identified. It was smooth. There was also some turbid purulent-appearing fluid in the right upper quadrant that was all removed as well. TECHNIQUE: The patient was given a general anesthetic and the area was prepped and draped in the usual sterile fashion. The skin inferior to the umbilicus was anesthetized with 0.5% Marcaine. Skin incision was made, carried down through the subcutaneous tissue to the fascia which was grasped with 2 Colton clamps and incised between. The peritoneum was identified, incised, and the introducer was placed bluntly. The abdomen was then insufflated to a pressure of 15 mmHg with carbon dioxide. The lower midline introducer was then placed through a small skin incision after the skin was anesthetized. It was placed under direct vision. I placed medial traction on the small bowel in the right lower quadrant. The patient was placed in Trendelenburg and airplane left position. The gangrenous portion of the appendix and the area where the leak was located was then identified. The tip of the appendix was free, but that mid portion was adherent to the inferior surface of the cecum and into the mesentery of the cecum, but I was able to separate it fairly easily. The left lower quadrant introducer site was chosen. The skin layers were anesthetized. Skin incision was made, and the introducer was placed under direct vision. We had some difficulty maintaining insufflation throughout the case. I was able to place anterior traction on the mesoappendix and divided the distal portion making sure to not include any of the appendix or bowel within the stapler. That allowed me to further elevate the appendix and I was then able to identify the base and was able to separate the mesoappendix away from the base of the appendix. The mesoappendix was then further divided using 2 firings of the Endo-JABIER stapler. I then elevated the appendix and was able to then confirm that I was at the base. The appendix was then amputated using the Endo-JABIER stapler. The appendix was placed into an Endobag and brought out through the left lower quadrant introducer site. Then introducer was replaced. The right lower quadrant and pelvis were irrigated with a copious amount of saline solution until the return was clear. I then had to arrange the instrumentation in order to be able to reach the right upper quadrant with the suction device, but that was performed. There was some purulent fluid in the subhepatic and subdiaphragmatic spaces. The spaces were irrigated. Irrigation was removed and that was repeated until the return was clear. Suction was placed along the right paracolic gutter to remove any fluid. Prior to removing and irrigating, some of the fluid was collected via the suction device and sent for culture. I then inspected the staple lines. There was no bleeding. The staple line on the cecum was intact. A separate stab incision was made on the right side of the abdomen, through which a 10 mm flat Rey-Khan was brought. It was placed into the abdomen through the 12 mm introducer and then the end was brought out through that stab incision. It was placed along the right paracolic gutter along the cecum and then down into the pelvis behind the uterus. It was secured at the skin with a 3-0 nylon. The gas was allowed to escape and the introducers were removed. The fascia of the umbilical incision was closed with interrupted 0 Vicryl. The skin of all the incisions was closed with 4-0 Monocryl in either an interrupted or running subcuticular fashion. The skin was cleansed, dried, benzoin placed, Steri-Strips applied. Estimated blood loss was 5 mL. Sponge, needle and instrument counts were correct prior to closure. The patient tolerated the surgical procedure without complication and was transferred to recovery. I attest to the content of the Intraoperative Record and any orders documented therein. Any exception s are noted below.
[2020-12-03] MEDS: NSS + 20MEQ KCL 20 MEQ/1,000 ML BAG IV SCH ×3 (05:35→23:07)
[2020-12-03] MEDS: PIPERACILLIN/TAZOBACTAM 4.5 GM in DEXTROSE 5% 100 ML IV SCH ×3 (05:35→21:20)
[2020-12-03 06:14] LABS: Hematocrit (blood only) 34.5 % (37-47); Hemoglobin 11.9 g/dL (12.0-16.0); Immature Granulocytes # (auto) 0.02 K/uL (0.00-0.02); Immature Granulocytes % (auto) 0.2 %; Lymphocytes # (auto) 0.28 K/uL (1.2-3.4); Lymphocytes % (auto) 3.4 %; Mean Corpuscular Hemoglobin 30.9 pg (25-34); Mean Corpuscular Hgb Conc 34.5 g/dL (32-36); Mean Corpuscular Volume 89.6 fL (80-100); Mean Platelet Volume 10.1 fL (7.4-10.4); Monocytes # (auto) 0.35 K/uL (0.11-0.59); Monocytes % (auto) 4.3 %; Neutrophils # (auto) 7.58 K/uL (1.4-6.5); Neutrophils % (auto) 92.1 %; Platelet Count 172 K/uL (130-400); RDW Standard Deviation 42.3 fL (36.4-46.3); Red Blood Count 3.85 M/uL (4.2-5.4); White Blood Count 8.23 K/uL (4.8-10.8)
--- NOTE | 2020-12-03 07:13 | CT Scan Report ---
CT abd pelvis IV con only CLINICAL HISTORY: lower abd pain COMPARISON STUDY: None. TECHNIQUE: The patient was scanned in a dynamic helical fashion during intravenous administration of 84 cc of Optiray 300 A dose lowering technique was utilized adhering to the principles of ALARA. CT DOSE: 1369.48 mGy.cm FINDINGS: Lower chest: There are mild basilar atelectatic changes. Liver: The contrast-enhanced liver is normal in size, contour, and attenuation. There is no intrahepa tic biliary ductal dilatation. The hepatic veins and portal veins are patent. Gallbladder: Unremarkable. Spleen: Normal in size and attenuation. Pancreas: Unremarkable. Adrenal glands: Unremarkable. Kidneys: There is symmetric renal cortical enhancement. The kidneys are normal in size without hydron ephrosis. Bowel: There are postsurgical changes at the esophagogastric junction. There are no transition zones indicate bowel obstruction. There is no evidence of acute diverticulitis. There is a dilated fluid-fi lled appendix with periappendiceal stranding. There are tiny foci of extraluminal gas. The findings a re suggestive of acute appendicitis with perforation. There are no fluid collections to indicate a dr ainable abscess. Peritoneum: There is trace free pelvic fluid. There are small extra luminal gas bubbles adjacent to t he appendix. There is a small fat-containing ventral hernia. Vasculature: The abdominal aorta is normal in course and caliber. Adenopathy: None. Pelvic viscera: The bladder, and pelvic viscera are unremarkable. Skeletal structures: No destructive osseous lesions are seen. 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 Degenerative changes are present within the spine. IMPRESSION: 1. CT findings indicative of acute perforated appendicitis. No drainable abscess. ACT 112: Negative or not required by law. Electronically signed by: Jeffrey Garcia M.D. 12/03/2020 7:11 AM
[2020-12-03] MEDS: oxyCODONE/ACETAMINOPHEN 5mg/325mg TAB PO PRN ×2 (10:09→21:26)
--- NOTE | 2020-12-03 11:21 | Surgery Progress Note ---
Date of Service December 03, 2020 Assessment & Plan (1) Acute perforated appendicitis: Postoperative day 0 status post laparoscopic appendectomy for acute gangrenous perforated appendicitis Doing well Encouraged ambulation Can now regular diet Continue drain Cultures pending, continue antibiotics until results are available Admission and Anticipated Discharge Date Admission Date: December 03, 2020 Subjective Postoperative day 0 status post laparoscopic appendectomy for gangrenous perforated appendicitis Patient feels much better than yesterday No nausea or vomiting Having some pain but easily controlled with the analgesia regimen Tolerated clear liquid diet ELLIE had 55 cc of serosanguineous fluid out since surgery. Physical Exam Gastrointestinal (Abdomen): Inspection/Auscultation: + abdominal surgical incision (Dressings are clean and dry) and + abdominal surgical drain present (Has serosanguineous drainage); abdomen not distended Percussion/Palpation: + abdomen tender (Minimal incisional) and abdomen soft Results & Data ([facility]) Vital Signs (Past 12 Hours) Vital Signs Temp Pulse Pulse Pulse Resp BP BP 12/03/20 11:17 36.9 C 71 16 126/78 12/03/20 07:24 37.2 C 88 16 126/74 12/03/20 06:23 36.5 C 78 20 143/81 H 12/03/20 05:25 36.7 C 99 H 16 120/80 12/03/20 04:57 36.9 C 100 H 18 135/84 12/03/20 04:44 36.5 C 94 H 18 153/86 H 12/03/20 04:25 36.5 C 94 H 18 153/86 H 12/03/20 04:10 91 H 132/86 12/03/20 04:04 89 139/83 12/03/20 04:01 96 H 12/03/20 04:00 36.6 C 103 H 131/98 12/03/20 03:55 97 H 134/72 12/03/20 03:49 100 H 124/66 12/03/20 03:48 101 H 12/03/20 03:47 100 H 117/64 12/03/20 03:46 105 H 12/03/20 03:45 102 H 118/66 12/03/20 03:41 106 H 12/03/20 03:40 101 H 82/66 L 12/03/20 03:39 36.6 C 109 H 126/76 12/03/20 00:21 135 H 20 122/76 12/02/20 23:29 133 H 20 126/79 Pulse Ox 12/03/20 11:17 95 12/03/20 07:24 95 12/03/20 06:23 96 12/03/20 05:25 96 12/03/20 04:57 94 12/03/20 04:44 95 12/03/20 04:25 95 12/03/20 04:10 96 12/03/20 04:04 94 12/03/20 04:01 94 12/03/20 04:00 94 12/03/20 03:55 95 12/03/20 03:49 97 12/03/20 03:48 95 12/03/20 03:47 96 12/03/20 03:46 96 12/03/20 03:45 97 12/03/20 03:41 95 12/03/20 03:40 96 12/03/20 03:39 95 12/03/20 00:21 95 12/02/20 23:29 96 Laboratory Results 12/03/20 12/02/20 12/02/20 Range/Units 05:29 22:15 22:15 WBC 8.23 (4.8-10.8) K/uL RBC 3.85 L (4.2-5.4) M/uL Hgb 11.9 L (12.0-16.0) g/dL Hct 34.5 L (37-47) % MCV 89.6 (80-100) fL MCH 30.9 (25-34) pg MCHC 34.5 (32-36) g/dL RDW Std Deviation 42.3 (36.4-46.3) fL RDW Coeff of Diana 13.0 (11.5-14.5) % Plt Count 172 (130-400) K/uL MPV 10.1 (7.4-10.4) fL Immature Gran % (Auto) 0.2 % Neut % (Auto) 92.1 % Lymph % (Auto) 3.4 % [place] % (Auto) 4.3 % Eos % (Auto) 0.0 % Baso % (Auto) 0.0 % Neut # (Auto) 7.58 H (1.4-6.5) K/uL Lymph # (Auto) 0.28 L (1.2-3.4) K/uL [place] # (Auto) 0.35 (0.11-0.59) K/uL Eos # (Auto) 0.00 (0-0.5) K/uL Baso # (Auto) 0.00 (0-0.2) K/uL Immature Gran # (Auto) 0.02 (0.00-0.02) K/uL Sodium (136-145) mmol/L Potassium (3.5-5.1) mmol/L Chloride (98-107) mmol/L Carbon Dioxide (21-32) mmol/L Anion Gap (3-11) BUN (7-18) mg/dl Creatinine (0.6-1.2) mg/dl Est Cr Clr Drug Dosing ml/min Est GFR ( Amer) Est GFR (Non-Af Amer) BUN/Creatinine Ratio (10-20) Glucose (70-99) mg/dl Calcium (8.5-10.1) mg/dl Total Bilirubin (0.2-1) mg/dl AST (15-37) U/L ALT (12-78) U/L Alkaline Phosphatase (45-117) U/L Troponin I (0-0.045) ng/ml Total Protein (6.4-8.2) gm/dl Albumin (3.4-5.0) gm/dl Globulin (2.5-4.0) gm/dl Albumin/Globulin Ratio (0.9-2) Lipase (73-393) U/L Urine Color Urine Appearance (Clear) Urine pH (4.5-7.5) Ur Specific [place] (1.000-1.030) Urine Protein (Negative) Urine Glucose (UA) (Negative) Urine Ketones (Negative) Urine Blood (Negative) Urine Nitrite (Negative) Urine Bilirubin (Negative) Urine Urobilinogen (Negative) Ur Leukocyte Esterase (Negative) Urine WBC (Auto) (0-5) /hpf Urine RBC (Auto) (0-4) /hpf U Hyaline Cast (Auto) (0-5) /lpf U Epithel Cells (Auto) (0-5) /lpf Urine Bacteria (Auto) (Negative) COVID-[address] Eval [address] CovFluRsv at [facility] SARS-CoV-2 (PCR) NEGATIVE (Negative) Influenza Type A (PCR) Negative (Neg) Influenza Type B (PCR) Negative (Neg) RSV (RT-PCR) Negative (Neg) 12/02/20 12/02/20 12/02/20 Range/Units 19:51 19:50 19:50 WBC 7.22 (4.8-10.8) K/uL RBC 4.82 (4.2-5.4) M/uL Hgb 14.8 (12.0-16.0) g/dL Hct 42.7 (37-47) % MCV 88.6 (80-100) fL MCH 30.7 (25-34) pg MCHC 34.7 (32-36) g/dL RDW Std Deviation 41.3 (36.4-46.3) fL RDW Coeff of Diana 12.7 (11.5-14.5) % Plt Count 207 (130-400) K/uL MPV 10.1 (7.4-10.4) fL Immature Gran % (Auto) 0.1 % Neut % (Auto) 90.5 % Lymph % (Auto) 6.2 % [place] % (Auto) 3.0 % Eos % (Auto) 0.1 % Baso % (Auto) 0.1 % Neut # (Auto) 6.52 H (1.4-6.5) K/uL Lymph # (Auto) 0.45 L (1.2-3.4) K/uL [place] # (Auto) 0.22 (0.11-0.59) K/uL Eos # (Auto) 0.01 (0-0.5) K/uL Baso # (Auto) 0.01 (0-0.2) K/uL Immature Gran # (Auto) 0.01 (0.00-0.02) K/uL Sodium 135 L (136-145) mmol/L Potassium 3.7 (3.5-5.1) mmol/L Chloride 102 (98-107) mmol/L Carbon Dioxide 22 (21-32) mmol/L Anion Gap 10.0 (3-11) BUN 12 (7-18) mg/dl Creatinine 1.04 (0.6-1.2) mg/dl Est Cr Clr Drug Dosing 66.1 ml/min Est GFR ( Amer) 67.6 Est GFR (Non-Af Amer) 58.4 BUN/Creatinine Ratio 11.7 (10-20) Glucose 149 H (70-99) mg/dl Calcium 9.8 (8.5-10.1) mg/dl Total Bilirubin 0.7 (0.2-1) mg/dl AST 16 (15-37) U/L ALT 34 (12-78) U/L Alkaline Phosphatase 91 (45-117) U/L Troponin I < 0.015 (0-0.045) ng/ml Total Protein 7.6 (6.4-8.2) gm/dl Albumin 4.0 (3.4-5.0) gm/dl Globulin 3.6 (2.5-4.0) gm/dl Albumin/Globulin Ratio 1.1 (0.9-2) Lipase 97 (73-393) U/L Urine Color Dark Yellow Urine Appearance Clear (Clear) Urine pH 5.5 (4.5-7.5) Ur Specific [place] 1.028 (1.000-1.030) Urine Protein Trace H (Negative) Urine Glucose (UA) Negative (Negative) Urine Ketones Trace H (Negative) Urine Blood Negative (Negative) Urine Nitrite Negative (Negative) Urine Bilirubin 1+ H (Negative) Urine Urobilinogen Negative (Negative) Ur Leukocyte Esterase Trace H (Negative) Urine WBC (Auto) 5-10 H (0-5) /hpf Urine RBC (Auto) 5-10 H (0-4) /hpf U Hyaline Cast (Auto) 5-10 H (0-5) /lpf U Epithel Cells (Auto) >30 H (0-5) /lpf Urine Bacteria (Auto) Negative (Negative) COVID-19 Eval Order SARS-CoV-2 (PCR) (Negative) Influenza Type A (PCR) (Neg) Influenza Type B (PCR) (Neg) RSV (RT-PCR) (Neg)
[2020-12-03] MEDS ORDERED: ACETAMINOPHEN 325 MG TAB PO PRN (13:51)
[2020-12-04] MEDS: PIPERACILLIN/TAZOBACTAM 4.5 GM in DEXTROSE 5% 100 ML IV SCH ×3 (04:30→20:22)
--- NOTE | 2020-12-04 06:13 | Electrocardiogram Report ---
Test Reason : Blood Pressure : / mmHG Vent. Rate : 142 BPM Atrial Rate : 142 BPM P-R Int : 134 ms QRS Dur : 104 ms QT Int : 298 ms P-R-T Axes : 055 -39 111 degrees QTc Int : 458 ms Sinus tachycardia Left axis deviation Left ventricular hypertrophy with repolarization abnormality Abnormal ECG No previous ECGs available Confirmed by Mateo Pedro ([id number]) on 12/04/2020 6:12:48 AM Referred By: REFERRED SELF Confirmed By:Mateo Pedro
[2020-12-04 06:15] LABS: Eosinophils # (auto) 0.02 K/uL (0-0.5); Eosinophils % (auto) 0.2 %; Hematocrit (blood only) 30.8 % (37-47); Hemoglobin 10.4 g/dL (12.0-16.0); Immature Granulocytes # (auto) 0.02 K/uL (0.00-0.02); Immature Granulocytes % (auto) 0.2 %; Lymphocytes % (auto) 9.5 %; Mean Corpuscular Hgb Conc 33.8 g/dL (32-36); Mean Corpuscular Volume 91.7 fL (80-100); Monocytes # (auto) 0.39 K/uL (0.11-0.59); Monocytes % (auto) 4.1 %; Platelet Count 153 K/uL (130-400); RDW Coefficient of Variation 13.5 % (11.5-14.5); RDW Standard Deviation 45.2 fL (36.4-46.3); Red Blood Count 3.36 M/uL (4.2-5.4); White Blood Count 9.43 K/uL (4.8-10.8)
[2020-12-04] MEDS: NSS + 20MEQ KCL 20 MEQ/1,000 ML BAG IV SCH ×2 (08:01→15:55)
--- NOTE | 2020-12-04 16:23 | Surgery Progress Note ---
Date of Service December 04, 2020 Assessment & Plan (1) Acute perforated appendicitis: Postoperative day 1 status post laparoscopic appendectomy for acute gangrenous perforated appendicitis avss pain minimal, controlled jada drain with 70 cc output last shift, serosanguineous culture showing gram + cocci, gram - bacilli, gram + bacilli Plan: continue iv zosyn for now, await sensitivities of culture continue jada drain continue reg diet ambulate, scds, incentive will start colace given narcotic pain medication use Dr. Dior has seen and examined pt, agrees with above. Admission and Anticipated Discharge Date Admission Date: December 03, 2020 Subjective feeling good, minimal pain no n,v tolerating diet ambulating hallway passing gas urinating without issue using incentive spirometer Physical Exam Constitutional: WD/WN, vitals as above + obese Respiratory: normal respiratory effort; no respiratory distress and no labored breathing Gastrointestinal (Abdomen): Inspection/Auscultation: abdomen normal to inspection, + abdominal surgical incision (covered with dressings and steri strips) and + abdominal surgical drain present (serosanguineous output); abdomen not distended Percussion/Palpation: + abdomen tender (at incision sites and drain site) and abdomen soft; no guarding and abdomen not rigid Skin: no rashes, warm and dry Psychiatric: A+Ox3, euthymic affect Results & Data ([facility]) Vital Signs (Past 12 Hours) Vital Signs Temp Pulse Pulse Resp BP Pulse Ox 12/04/20 15:46 36.7 C 71 18 163/84 H 100 12/04/20 07:30 36.7 C 95 H 16 143/84 H 98 Laboratory Results Microbiology 12/03/20 03:00 Gram Stain - Final Tissue,Undefined Aerobic and Anaerobic Culture - Preliminary Pin-point growth present, reincubating. 12/04/20 Range/Units 05:48 WBC 9.43 (4.8-10.8) K/uL RBC 3.36 L (4.2-5.4) M/uL Hgb 10.4 L (12.0-16.0) g/dL Hct 30.8 L (37-47) % MCV 91.7 (80-100) fL MCH 31.0 (25-34) pg MCHC 33.8 (32-36) g/dL RDW Std Deviation 45.2 (36.4-46.3) fL RDW Coeff of Diana 13.5 (11.5-14.5) % Plt Count 153 (130-400) K/uL MPV 10.0 (7.4-10.4) fL Immature Gran % (Auto) 0.2 % Neut % (Auto) 86.0 % Lymph % (Auto) 9.5 % [place] % (Auto) 4.1 % Eos % (Auto) 0.2 % Baso % (Auto) 0.0 % Neut # (Auto) 8.10 H (1.4-6.5) K/uL Lymph # (Auto) 0.90 L (1.2-3.4) K/uL [place] # (Auto) 0.39 (0.11-0.59) K/uL Eos # (Auto) 0.02 (0-0.5) K/uL Baso # (Auto) 0.00 (0-0.2) K/uL Immature Gran # (Auto) 0.02 (0.00-0.02) K/uL
[2020-12-04] MEDS: DOCUSATE SODIUM 100 MG CAP PO SCH (20:22)
[2020-12-04] MEDS: oxyCODONE/ACETAMINOPHEN 5mg/325mg TAB PO PRN (21:09)
[2020-12-05] MEDS: PIPERACILLIN/TAZOBACTAM 4.5 GM in DEXTROSE 5% 100 ML IV SCH (04:47)
[2020-12-05 07:12] LABS: Creatinine Clr Calc Pharmacy 73.3 ml/min; Est GFR (African American) 76.4 ml/min; Est GFR (Non-African American) 65.9 ml/min
[2020-12-05] MEDS: DOCUSATE SODIUM 100 MG CAP PO SCH (08:25)
--- NOTE | 2020-12-05 10:09 | Discharge Summary ---
Date of Service December 05, 2020 Admission HPI Per Admitting Provider This is a 60-year-old female who presented to the emergency room with a complaint of pain in the right lower quadrant. She awoke with it at 1:00 this morning. She went to bed last night she had no pain. The pain was initially described as a burning sensation but then as the morning and then day progressed it became more sharp and migrated to the right lower quadrant. She took some ibuprofen with milk and the pain abated however when she got off the couch it became sharp again. She has never had pain like this before. Does not radiate through to her back. There is no associated nausea or vomiting. She had the chills but she does not think she had fever. She had no change in her bowel habits. She denies melena and hematochezia. There is no associated urinary frequency. She has no dysuria or hematuria. Upon arrival in the emergency room she was tachycardic with a heart rate of 140. EKG showed sinus tachycardia. She was given a liter of IV fluid and her heart rate decreased into the 120s. Principal Diagnosis Acute perforated appendicitis Discharge Exam Constitutional WD/WN, vitals as above + obese Respiratory normal respiratory effort; no respiratory distress and no labored breathing Gastrointestinal (Abdomen) Inspection/Auscultation: abdomen normal to inspection, + abdominal surgical incision (covered with steri strips) and + abdominal surgical drain present (serous output); abdomen not distended Percussion/Palpation: abdomen soft; abdomen nontender, no guarding and abdomen not rigid Skin no rashes, warm and dry Psychiatric A+Ox3, euthymic affect Discharge Data Allergies Allergy/AdvReac Type Severity Reaction Status Date / Time No Known Allergies Allergy Unverified 12/02/20 20:15 Consultations 12/02/20 22:03 ED Decision to Admit Stat Procedures Performed Operation Date: 12/03/20 00:00 Actual Procedures p Laparoscopic Appendectomy - Silas Dior MD Ordered Studies 12/02/20 19:31 CT abd pelvis IV con only Urgent Hospital Course (1) Acute perforated appendicitis: Patient was taken to operating room for laparoscopic appendectomy by Dr. Dior. Patient was found to have perforated appendicitis. A wayne drain was placed. Patient tolerated procedure well and was transferred to recovery room in stable condition. Was transferred to medical/surgical floor. Patients diet was advanced to regular diet, IV Zosyn was continued given perforation, wayne drain to bulb suction, and IV morphine with PO Percocet as needed for pain. POD # 1, vitals stable, afebrile. Patient tolerated advancement of diet and pain controlled. POD # 2 , avss, pain minimal and controlled. Doing well. Culture showing gram + cocci, bacilli and gram - bacilli, sensitivities pending. Wayne drain with serosanguineous output. Patient was discharged home on POD # 3 in s table condition. Wayne drain was removed prior to discharge. Home with oral augmentin for 10 days. Total Time Total Time Spent Total Time Spent (In Minutes): 20 Total Time Includes: Examination of the Patient, Discharge Planning and Medication Reconciliation Discharge Plan Discharge Items Patient Disposition: Home - Self-Care Reason For Visit: ACUTE PERFORATED APPENDICITIS Discharge Diagnosis: Same Condition on Discharge: Good Activity: Per Instructions section Non-emergency contact: Primary Care Provider and Surgeon Call non-emergency contact if: you have any medication questions, your pain is not controlled, your pain is worsening, you have a fever, your temperature is above 101, your wound has increased redness, your wound has increased drainage and your wound pain has increased Follow-up/Referrals: PCPGILLIAN [Primary Care Provider] - Diet: Regular Addtl Attending Provider Instructions: Post-Surgical ~Discharge Instructions Activity Recommendations: - lifting limitation: (10 pounds for 2 weeks), - exercise/sex/sports limit: (nonstrenuous for 2 weeks), - driving or machine use limit: (none for 1 week), - Shower/bathe limit: (may shower beginning tomorrow) Diet: - Resume previous diet SPECIAL CARE INSTRUCTIONS: - May shower in 24 hours. Let water run over area and pat dry. - Leave steri strips on for one week and then remove - Call the surgeon's office with any questions or concerns - - (ex. temperature higher than 101 degrees F, excessive bleeding or pain). MEDICATIONS: - Resume previous medications unless instructed otherwise by your surgeon. - May take extra strength Tylenol as needed for pain - 500-650 mg Tylenol every 6 hours as needed - Percocet 1 every 6 hours, as needed for moderate to severe pain - Take antibiotics for total of 10 days FOLLOW UP VISIT: - If not already scheduled, please call the office to schedule a 10 day follow- up appointment. Office number Pending Studies at Discharge: Yes Stand-Alone Forms: My [facility], Smoking Cessation Medications and DC Order Prescriptions: New amoxicillin-pot clavulanate [Augmentin] 875-125 mg tablet 1 tab PO BID Qty: 20 RF: 0 oxycodone-acetaminophen [Percocet] 5-325 mg tablet 1 tab PO Q6H PRN (Reason: pain) Qty: 5 RF: 0 Continued potassium 99 mg Tablet 99 mg PO QAM RF: 0 [id number] Tablet 1 tab PO QAM RF: 0 ibuprofen 200 mg Tablet 400 mg PO Q6H PRN (Reason: fever/pain) RF: 0 vitamin B complex Tablet 1 tab PO QAM RF: 0 Discharge Orders: Discharge Order (Routine); Ordered 12/05/20 Ordered By: Rebecca Mcfadden Admission Data Admit Date/Time: 12/03/20 03:27 Attending Provider: Silas Dior Admit Provider: Silas Dior Primary Care Provider: PCP,NO Other Providers: Silas Dior
== END 2020-12-05 13:07 | disposition home or self-care (01) ==
LOC: ED 19:11 → OR 12-03 00:24 → 3E 12-03 00:24
DX: Z98.84 Bariatric surgery status; K35.32 Acute appendicitis with perforation, localized peritonitis, and gangrene, without abscess; Z79.899 Other long term (current) drug therapy; R00.0 Tachycardia, unspecified